=== PATIENT | male | born 1940 | race Caucasian/White ===

== ENCOUNTER 2017-11-18 08:30 | Outpatient (CLI) | payer OTHER | END 2017-11-18 08:45 | disposition home or self-care (01) | LOC: TOM 08:30 → RAD 08:30 → TOM 08:45 | DX: N20.0 Calculus of kidney (principal); N39.0 Urinary tract infection, site not specified ==

== ENCOUNTER 2018-02-03 17:11 | Inpatient (IN) | payer OTHER ==
[~2018-02-03] VITALS: Ht 177.8 cm; Wt 89.8 kg
[2018-02-03] MEDS ORDERED: DILTIAZEM ER60 MG PO (17:27)
[2018-02-03] MEDS ORDERED: OMEPRAZOLE20 MG PO (17:27)
[2018-02-03] MEDS ORDERED: VASOTEC2.5 MG PO (17:28)
[2018-05-02] MEDS ORDERED: TOPROL XL25 M1 PO (14:30)
[2018-05-02] MEDS ORDERED: PANTOPRAZOLE SO40 MG PO (14:30)
[2018-05-02] MEDS ORDERED: PROSCAR5 MG PO (14:30)
[2018-05-02] MEDS ORDERED: Intestinex CAP PO (14:30)
[2018-05-02] MEDS ORDERED: INTEGRA CAPSUL1 EACH PO (14:30)
[2018-05-02] MEDS ORDERED: PAROXETINE HCL10 MG PO (14:30)
[2018-05-02] MEDS ORDERED: PHENAZOPYRIDIN100 MG PO (14:30)
[2018-05-02] MEDS ORDERED: PRE PROTEIN1 EACH PO (14:30)
[2018-05-02] MEDS ORDERED: NEURONTIN300 MG PO (14:30)
[2018-05-02] MEDS ORDERED: LOVENOX40 MG/0.4 SUBCUTANEO (14:30)
== END 2018-05-02 15:36 | disposition home or self-care (01) | DRG 3 ==
LOC: ER 17:11 → ICU-2 22:21 → ICU 22:21 → SURH 03-30 17:39 → ICU 03-30 19:23 → SURH 04-10 20:28 → MEDI 04-10 20:28 → SURH 04-10 20:28
PROC: 4A033R1 Measurement of Arterial Saturation, Peripheral, Percutaneous Approach (ICD-10-PCS; 2018-02-03)
PROC: B246ZZZ Ultrasonography of Right and Left Heart (ICD-10-PCS; 2018-02-03)
PROC: 5A1945Z Respiratory Ventilation, 24-96 Consecutive Hours (ICD-10-PCS; principal; 2018-02-04)
PROC: 0BH17EZ Insertion of Endotracheal Airway into Trachea, Via Natural or Artificial Opening (ICD-10-PCS; 2018-02-04)
PROC: 30233N1 Transfusion of Nonautologous Red Blood Cells into Peripheral Vein, Percutaneous Approach (ICD-10-PCS; 2018-02-06)
PROC: BB24ZZZ Computerized Tomography (CT Scan) of Bilateral Lungs (ICD-10-PCS; 2018-02-07)
PROC: BW21Y0Z Computerized Tomography (CT Scan) of Abdomen and Pelvis using Other Contrast, Unenhanced and Enhanced (ICD-10-PCS; 2018-02-07)
PROC: 5A1955Z Respiratory Ventilation, Greater than 96 Consecutive Hours (ICD-10-PCS; 2018-02-08)
PROC: 3E0F7GC Introduction of Other Therapeutic Substance into Respiratory Tract, Via Natural or Artificial Opening (ICD-10-PCS; 2018-02-08)
PROC: 0BH17EZ Insertion of Endotracheal Airway into Trachea, Via Natural or Artificial Opening (ICD-10-PCS; 2018-02-08)
PROC: B54DZZZ Ultrasonography of Bilateral Lower Extremity Veins (ICD-10-PCS; 2018-02-08)
PROC: B246ZZZ Ultrasonography of Right and Left Heart (ICD-10-PCS; 2018-02-08)
PROC: 3E0336Z Introduction of Nutritional Substance into Peripheral Vein, Percutaneous Approach (ICD-10-PCS; 2018-02-09)
PROC: 0T778DZ Dilation of Left Ureter with Intraluminal Device, Via Natural or Artificial Opening Endoscopic (ICD-10-PCS; 2018-02-10)
PROC: BT1FZZZ Fluoroscopy of Left Kidney, Ureter and Bladder (ICD-10-PCS; 2018-02-10)
PROC: 02HV33Z Insertion of Infusion Device into Superior Vena Cava, Percutaneous Approach (ICD-10-PCS; 2018-02-11)
PROC: 8E0ZXY6 Isolation (ICD-10-PCS; 2018-02-17)
PROC: 5A09557 Assistance with Respiratory Ventilation, Greater than 96 Consecutive Hours, Continuous Positive Airway Pressure (ICD-10-PCS; 2018-02-25)
PROC: BW24ZZZ Computerized Tomography (CT Scan) of Chest and Abdomen (ICD-10-PCS; 2018-03-02)
PROC: B246ZZZ Ultrasonography of Right and Left Heart (ICD-10-PCS; 2018-03-02)
PROC: 0B9C8ZX Drainage of Right Upper Lung Lobe, Via Natural or Artificial Opening Endoscopic, Diagnostic (ICD-10-PCS; 2018-03-05)
PROC: 0B110F4 Bypass Trachea to Cutaneous with Tracheostomy Device, Open Approach (ICD-10-PCS; 2018-03-19)
PROC: BB24ZZZ Computerized Tomography (CT Scan) of Bilateral Lungs (ICD-10-PCS; 2018-03-22)
PROC: BW25ZZZ Computerized Tomography (CT Scan) of Chest, Abdomen and Pelvis (ICD-10-PCS; 2018-03-24)
PROC: 0W9G30Z Drainage of Peritoneal Cavity with Drainage Device, Percutaneous Approach (ICD-10-PCS; 2018-03-28)
PROC: BW25YZZ Computerized Tomography (CT Scan) of Chest, Abdomen and Pelvis using Other Contrast (ICD-10-PCS; 2018-04-04)
PROC: 0W9J30Z Drainage of Pelvic Cavity with Drainage Device, Percutaneous Approach (ICD-10-PCS; 2018-04-06)
PROC: 4A12X4Z Monitoring of Cardiac Electrical Activity, External Approach (ICD-10-PCS; 2018-04-10)
PROC: BW25Y0Z Computerized Tomography (CT Scan) of Chest, Abdomen and Pelvis using Other Contrast, Unenhanced and Enhanced (ICD-10-PCS; 2018-04-12)
PROC: 0WQ6XZ2 Repair Neck, Stoma, External Approach (ICD-10-PCS; 2018-04-16)
PROC: 0CJS8ZZ Inspection of Larynx, Via Natural or Artificial Opening Endoscopic (ICD-10-PCS; 2018-04-16)
PROC: 0BJ18ZZ Inspection of Trachea, Via Natural or Artificial Opening Endoscopic (ICD-10-PCS; 2018-04-16)
PROC: BW4GZZZ Ultrasonography of Pelvic Region (ICD-10-PCS; 2018-04-23)
PROC: B030YZZ Magnetic Resonance Imaging (MRI) of Brain using Other Contrast (ICD-10-PCS; 2018-04-24)
PROC: 0B21XFZ Change Tracheostomy Device in Trachea, External Approach (ICD-10-PCS; 2018-04-27)
DX: A41.9 Sepsis, unspecified organism (principal); R65.21 Severe sepsis with septic shock; J96.01 Acute respiratory failure with hypoxia; J81.0 Acute pulmonary edema; I50.33 Acute on chronic diastolic (congestive) heart failure; J18.8 Other pneumonia, unspecified organism; N39.0 Urinary tract infection, site not specified; N13.8 Other obstructive and reflux uropathy; N17.8 Other acute kidney failure; E87.2 Acidosis; E27.49 Other adrenocortical insufficiency; J90 Pleural effusion, not elsewhere classified; B37.0 Candidal stomatitis; N13.6 Pyonephrosis; B37.49 Other urogenital candidiasis; E87.0 Hyperosmolality and hypernatremia; I24.9 Acute ischemic heart disease, unspecified; K57.20 Diverticulitis of large intestine with perforation and abscess without bleeding; J47.1 Bronchiectasis with (acute) exacerbation; N40.1 Benign prostatic hyperplasia with lower urinary tract symptoms; K29.00 Acute gastritis without bleeding; E78.00 Pure hypercholesterolemia, unspecified; D50.8 Other iron deficiency anemias; B96.29 Other Escherichia coli [E. coli] as the cause of diseases classified elsewhere; I11.0 Hypertensive heart disease with heart failure; B96.1 Klebsiella pneumoniae [K. pneumoniae] as the cause of diseases classified elsewhere; D50.0 Iron deficiency anemia secondary to blood loss (chronic); Z16.12 Extended spectrum beta lactamase (ESBL) resistance
CPT/HCPCS: 70552

== ENCOUNTER 2018-06-29 13:58 | Outpatient (CLI) | payer OTHER ==
[~2018-06-29 13:58] MED LIST: DILTIAZEM ER60 MG PO; INTEGRA CAPSUL1 EACH PO; Intestinex CAP PO; LOVENOX40 MG/0.4 SUBCUTANEO; NEURONTIN300 MG PO; OMEPRAZOLE20 MG PO; PANTOPRAZOLE SO40 MG PO; PAROXETINE HCL10 MG PO; PHENAZOPYRIDIN100 MG PO; PRE PROTEIN1 EACH PO; PROSCAR5 MG PO; TOPROL XL25 M1 PO; VASOTEC2.5 MG PO
== END 2018-06-29 14:11 | disposition home or self-care (01) ==
LOC: RAD 501 13:58
DX: I11.9 Hypertensive heart disease without heart failure (principal); N20.0 Calculus of kidney

== ENCOUNTER → 2018-07-08 15:41 | Outpatient (CLI) | payer OTHER | END | disposition home or self-care (01) | LOC: EKG 15:41 | DX: Z01.810 Encounter for preprocedural cardiovascular examination (principal) ==

== ENCOUNTER 2018-07-21 05:45 | Inpatient (IN) | payer OTHER ==
[~2018-07-21] VITALS: Ht 172.7 cm; Wt 85.3 kg
[~2018-07-21 05:45] MED LIST changes: +FINASTERIDE5 MG PO; +LOSARTAN POTASS25 MG PO; +PEPCID AC20 MG PO; +PROTONIX40 MG PO; +TAMS0.4C PO
== END 2018-07-23 10:14 | disposition home or self-care (01) | DRG 660 ==
LOC: CIR.AMB 05:45 → O/R 12:34 → SURG 12:34 → CIR.AMB 15:38 → SURG 07-23 10:14
PROVIDERS: Urology
PROC: BT1FZZZ Fluoroscopy of Left Kidney, Ureter and Bladder (ICD-10-PCS; 2018-07-21)
PROC: 0TP98DZ Removal of Intraluminal Device from Ureter, Via Natural or Artificial Opening Endoscopic (ICD-10-PCS; 2018-07-21)
PROC: 3E0F7GC Introduction of Other Therapeutic Substance into Respiratory Tract, Via Natural or Artificial Opening (ICD-10-PCS; 2018-07-21)
PROC: 0TC18ZZ Extirpation of Matter from Left Kidney, Via Natural or Artificial Opening Endoscopic (ICD-10-PCS; principal; 2018-07-21 07:00)
PROC: BT12YZZ Fluoroscopy of Left Kidney using Other Contrast (ICD-10-PCS; 2018-07-23)
DX: N20.0 Calculus of kidney (principal); I50.30 Unspecified diastolic (congestive) heart failure; I11.0 Hypertensive heart disease with heart failure; E78.00 Pure hypercholesterolemia, unspecified; J43.8 Other emphysema

== ENCOUNTER 2018-07-30 11:22 | Outpatient (CLI) | payer OTHER | END 2018-07-30 11:46 | disposition home or self-care (01) | LOC: RAD 501 11:22 | DX: N20.0 Calculus of kidney (principal) ==

== ENCOUNTER 2019-11-12 09:43 | Inpatient (IN) | payer OTHER ==
[~2019-11-12] VITALS: Ht 177.8 cm; Wt 95.3 kg
[2019-11-12] MEDS ORDERED: DHEA25 MG PO (10:24)
[2019-11-12] MEDS ORDERED: FOLGARD TABLET1 EACH PO (10:25)
[2019-11-12] MEDS ORDERED: PAXIL20 MG PO (10:25)
[2019-11-12] MEDS ORDERED: COZAAR50 MG PO (10:25)
[2019-11-12] MEDS ORDERED: TRICOR145 MG (10:26)
[2019-11-12] MEDS ORDERED: SUPPORT-5001 EACH PO (10:26)
[2019-11-12] MEDS ORDERED: TAMS0.4C PO (10:27)
[2019-11-12] MEDS ORDERED: DILTIAZEM ER120 M2 PO (10:27)
[2019-11-12] MEDS ORDERED: NIACOR500 MG PO (10:27)
[2019-11-12] MEDS ORDERED: PEPCID AC10 MG PO (10:28)
[2019-11-12] MEDS ORDERED: NTG IV (10:29)
[2019-11-12] MEDS ORDERED: CLARITIN10 MG PO (10:29)
[2019-12-28] MEDS ORDERED: LORATADINE10 MG PO (11:45)
[2019-12-28] MEDS ORDERED: NITROGLYCERIN1 EAC3 TD (11:46)
[2019-12-28] MEDS ORDERED: TAMS0.4C PO (11:46)
[2019-12-28] MEDS ORDERED: DILTIAZEM ER120 M2 PO (11:46)
[2019-12-28] MEDS ORDERED: GABAPENTIN300 MG PO (11:47)
[2019-12-28] MEDS ORDERED: PAXIL20 MG PO (11:47)
[2019-12-28] MEDS ORDERED: BENZONATATE100 MG PO (11:48)
[2019-12-28] MEDS ORDERED: PRE PROTEIN1 EACH PO (11:48)
[2019-12-28] MEDS ORDERED: PEPCID AC20 MG PO (11:49)
[2019-12-28] MEDS ORDERED: INTESTINEX680 M1 PO (11:49)
[2019-12-28] MEDS ORDERED: IMODIUM A-D2 M2 PO (11:50)
[2019-12-28] MEDS ORDERED: PROTONIX40 MG PO (11:50)
[2019-12-28] MEDS ORDERED: FOLGARD TABLET1 EACH PO (11:51)
[2019-12-28] MEDS ORDERED: SUPPORT-5001 EACH PO (11:51)
[2019-12-28] MEDS ORDERED: FINASTERIDE5 MG PO (11:52)
== END 2019-12-28 16:24 | disposition home or self-care (01) | DRG 329 ==
LOC: ER 09:43 → SURG 23:02 → ICU 23:02 → SURH 23:02 → ICU 12-15 20:05 → SURH 12-23 20:24
PROVIDERS: Surgery; ADMIT Internal Medicine
PROC: BW21ZZZ Computerized Tomography (CT Scan) of Abdomen and Pelvis (ICD-10-PCS; 2019-11-12)
PROC: B246ZZZ Ultrasonography of Right and Left Heart (ICD-10-PCS; 2019-11-12)
PROC: 0T9B70Z Drainage of Bladder with Drainage Device, Via Natural or Artificial Opening (ICD-10-PCS; 2019-11-12)
PROC: 02HV33Z Insertion of Infusion Device into Superior Vena Cava, Percutaneous Approach (ICD-10-PCS; 2019-11-13)
PROC: 3E0F7GC Introduction of Other Therapeutic Substance into Respiratory Tract, Via Natural or Artificial Opening (ICD-10-PCS; 2019-11-15)
PROC: 8E0ZXY6 Isolation (ICD-10-PCS; 2019-11-15)
PROC: 4A033R1 Measurement of Arterial Saturation, Peripheral, Percutaneous Approach (ICD-10-PCS; 2019-11-24)
PROC: 0D1B4Z4 Bypass Ileum to Cutaneous, Percutaneous Endoscopic Approach (ICD-10-PCS; 2019-12-15)
PROC: 0DJD8ZZ Inspection of Lower Intestinal Tract, Via Natural or Artificial Opening Endoscopic (ICD-10-PCS; 2019-12-15)
PROC: 0DTN4ZZ Resection of Sigmoid Colon, Percutaneous Endoscopic Approach (ICD-10-PCS; principal; 2019-12-15 18:30)
PROC: 0BH17EZ Insertion of Endotracheal Airway into Trachea, Via Natural or Artificial Opening (ICD-10-PCS; 2019-12-16)
PROC: 5A1945Z Respiratory Ventilation, 24-96 Consecutive Hours (ICD-10-PCS; 2019-12-16)
PROC: 0DH67UZ Insertion of Feeding Device into Stomach, Via Natural or Artificial Opening (ICD-10-PCS; 2019-12-16)
PROC: 3E0G76Z Introduction of Nutritional Substance into Upper GI, Via Natural or Artificial Opening (ICD-10-PCS; 2019-12-16)
PROC: 4A12X4Z Monitoring of Cardiac Electrical Activity, External Approach (ICD-10-PCS; 2019-12-23)
PROC: BT10YZZ Fluoroscopy of Bladder using Other Contrast (ICD-10-PCS; 2019-12-26)
DX: K57.20 Diverticulitis of large intestine with perforation and abscess without bleeding (principal); J95.822 Acute and chronic postprocedural respiratory failure; B37.1 Pulmonary candidiasis; N32.1 Vesicointestinal fistula; N13.6 Pyonephrosis; B37.41 Candidal cystitis and urethritis; J44.1 Chronic obstructive pulmonary disease with (acute) exacerbation; J45.41 Moderate persistent asthma with (acute) exacerbation; E87.2 Acidosis; E44.0 Moderate protein-calorie malnutrition; B96.1 Klebsiella pneumoniae [K. pneumoniae] as the cause of diseases classified elsewhere; B95.2 Enterococcus as the cause of diseases classified elsewhere; R31.0 Gross hematuria; R06.89 Other abnormalities of breathing; R09.02 Hypoxemia; F43.22 Adjustment disorder with anxiety; M62.59 Muscle wasting and atrophy, not elsewhere classified, multiple sites; D69.49 Other primary thrombocytopenia; I25.10 Atherosclerotic heart disease of native coronary artery without angina pectoris; N36.8 Other specified disorders of urethra; B96.4 Proteus (mirabilis) (morganii) as the cause of diseases classified elsewhere; N20.0 Calculus of kidney; K76.0 Fatty (change of) liver, not elsewhere classified; K63.89 Other specified diseases of intestine; R31.29 Other microscopic hematuria; I11.9 Hypertensive heart disease without heart failure; I48.0 Paroxysmal atrial fibrillation; N40.1 Benign prostatic hyperplasia with lower urinary tract symptoms; R35.0 Frequency of micturition; E11.9 Type 2 diabetes mellitus without complications; Z79.01 Long term (current) use of anticoagulants; Z79.4 Long term (current) use of insulin; Z99.81 Dependence on supplemental oxygen; S60.212A Contusion of left wrist, initial encounter; W06.XXXA Fall from bed, initial encounter; Y93.89 Activity, other specified; Y92.230 Patient room in hospital as the place of occurrence of the external cause; Y99.8 Other external cause status

== ENCOUNTER 2020-03-28 08:11 | Outpatient (CLI) | payer OTHER ==
[~2020-03-28 08:11] MED LIST changes: +BENZONATATE100 MG PO; +CLARITIN10 MG PO; +COZAAR50 MG PO; +DHEA25 MG PO; +DILTIAZEM ER120 M2 PO; +FOLGARD TABLET1 EACH PO; +GABAPENTIN300 MG PO; +IMODIUM A-D2 M2 PO; +INTESTINEX680 M1 PO; +LORATADINE10 MG PO; +NIACOR500 MG PO; +NITROGLYCERIN1 EAC3 TD; +NTG IV; +PAXIL20 MG PO; +PEPCID AC10 MG PO; +SUPPORT-5001 EACH PO; +TRICOR145 MG
== END 2020-03-28 08:14 | disposition home or self-care (01) ==
LOC: RX STUDY 08:11
PROVIDERS: ATTEND Surgery
DX: K63.2 Fistula of intestine (principal); N32.1 Vesicointestinal fistula; K57.20 Diverticulitis of large intestine with perforation and abscess without bleeding

== ENCOUNTER 2020-05-01 09:10 | Outpatient (CLI) | payer OTHER | END 2020-05-01 09:15 | disposition home or self-care (01) | LOC: RAD 09:10 | PROVIDERS: ATTEND Surgery | DX: K63.2 Fistula of intestine (principal); N32.1 Vesicointestinal fistula; K57.20 Diverticulitis of large intestine with perforation and abscess without bleeding ==

== ENCOUNTER 2020-05-01 09:50 | Outpatient (CLI) | payer OTHER | END 2020-05-01 15:00 | disposition home or self-care (01) | LOC: EKG 09:50 | PROVIDERS: ATTEND Surgery | DX: I10 Essential (primary) hypertension (principal) ==

== ENCOUNTER 2020-05-03 15:53 | Outpatient (CLI) | payer OTHER | END 2020-05-03 16:03 | disposition home or self-care (01) | LOC: LAB 15:53 | PROVIDERS: ATTEND Internal Medicine | DX: N39.0 Urinary tract infection, site not specified (principal); B96.1 Klebsiella pneumoniae [K. pneumoniae] as the cause of diseases classified elsewhere ==

== ENCOUNTER 2020-05-08 09:35 | Inpatient (IN) | payer OTHER ==
[~2020-05-08] VITALS: Ht 172.7 cm; Wt 94.8 kg
[2020-05-29] MEDS ORDERED: INTESTINEX680 M1 PO (15:14)
[2020-05-29] MEDS ORDERED: FLAGYL500MG PO (15:14)
[2020-05-29] MEDS ORDERED: PAXIL20 MG PO (15:16)
[2020-05-29] MEDS ORDERED: PROSCAR5 MG PO (15:16)
[2020-05-29] MEDS ORDERED: DERMACINRX5000 UNIT PO (15:16)
[2020-05-29] MEDS ORDERED: PEPCID AC20 MG PO (15:17)
[2020-05-29] MEDS ORDERED: NEURONTIN300 MG PO (15:17)
== END 2020-05-29 18:54 | disposition home or self-care (01) | DRG 982 ==
LOC: ER 09:35 → SEC-K 10:17 → SURH 10:17
PROVIDERS: Surgery; ADMIT Internal Medicine; ATTEND Internal Medicine
PROC: 8E0ZXY6 Isolation (ICD-10-PCS; 2020-05-08)
PROC: 3E0F7GC Introduction of Other Therapeutic Substance into Respiratory Tract, Via Natural or Artificial Opening (ICD-10-PCS; 2020-05-08)
PROC: 02HV33Z Insertion of Infusion Device into Superior Vena Cava, Percutaneous Approach (ICD-10-PCS; 2020-05-10)
PROC: 0DSB4ZZ Reposition Ileum, Percutaneous Endoscopic Approach (ICD-10-PCS; principal; 2020-05-17 15:30)
PROC: BW21Y0Z Computerized Tomography (CT Scan) of Abdomen and Pelvis using Other Contrast, Unenhanced and Enhanced (ICD-10-PCS; 2020-05-23)
PROC: 3E0436Z Introduction of Nutritional Substance into Central Vein, Percutaneous Approach (ICD-10-PCS; 2020-05-25)
DX: N39.0 Urinary tract infection, site not specified (principal); K56.7 Ileus, unspecified; B96.1 Klebsiella pneumoniae [K. pneumoniae] as the cause of diseases classified elsewhere; K57.30 Diverticulosis of large intestine without perforation or abscess without bleeding; I10 Essential (primary) hypertension; N40.0 Benign prostatic hyperplasia without lower urinary tract symptoms; R31.29 Other microscopic hematuria; Z20.828 Contact with and (suspected) exposure to other viral communicable diseases; Z93.2 Ileostomy status

== ENCOUNTER 2021-09-12 08:42 | Inpatient (IN) | payer OTHER ==
[~2021-09-12] VITALS: Ht 177.8 cm; Wt 96.2 kg
[~2021-09-12 08:42] MED LIST changes: +DERMACINRX5000 UNIT PO; +FLAGYL500MG PO
== END 2021-09-24 22:30 | disposition home or self-care (01) | DRG 689 ==
LOC: ER 08:42 → MEDJ 17:33
PROVIDERS: ADMIT Internal Medicine; ATTEND Internal Medicine
PROC: 4A12X4Z Monitoring of Cardiac Electrical Activity, External Approach (ICD-10-PCS; principal; 2021-09-12)
PROC: 3E0F7GC Introduction of Other Therapeutic Substance into Respiratory Tract, Via Natural or Artificial Opening (ICD-10-PCS; 2021-09-12)
PROC: 8E0ZXY6 Isolation (ICD-10-PCS; 2021-09-12)
PROC: BW40ZZZ Ultrasonography of Abdomen (ICD-10-PCS; 2021-09-12)
PROC: BW2110Z Computerized Tomography (CT Scan) of Abdomen and Pelvis using Low Osmolar Contrast, Unenhanced and Enhanced (ICD-10-PCS; 2021-09-12)
PROC: CF2YYZZ Tomographic (Tomo) Nuclear Medicine Imaging of Hepatobiliary System and Pancreas using Other Radionuclide (ICD-10-PCS; 2021-09-17)
PROC: 4A033R1 Measurement of Arterial Saturation, Peripheral, Percutaneous Approach (ICD-10-PCS; 2021-09-17)
PROC: BW2110Z Computerized Tomography (CT Scan) of Abdomen and Pelvis using Low Osmolar Contrast, Unenhanced and Enhanced (ICD-10-PCS; 2021-09-18)
DX: N39.0 Urinary tract infection, site not specified (principal); J18.9 Pneumonia, unspecified organism; K80.10 Calculus of gallbladder with chronic cholecystitis without obstruction; E87.2 Acidosis; J98.11 Atelectasis; B96.1 Klebsiella pneumoniae [K. pneumoniae] as the cause of diseases classified elsewhere; D72.828 Other elevated white blood cell count; K59.09 Other constipation; I10 Essential (primary) hypertension; J44.9 Chronic obstructive pulmonary disease, unspecified; F43.22 Adjustment disorder with anxiety; E78.00 Pure hypercholesterolemia, unspecified; N40.0 Benign prostatic hyperplasia without lower urinary tract symptoms; K29.70 Gastritis, unspecified, without bleeding